=== PATIENT | female | born 1985 | race Caucasian/White ===

== ENCOUNTER → 2016-06-26 | Outpatient (CLI) | payer MEDICAID ==
[~2016-06-26] MED LIST: FLINTSTONES COM1 CTB PO; FLONASE 50 MCG16 GM; IRON325 MG PO; LORATADINE 10MG10 M1 PO; MEDROL 4MG. DOSE4 MG PO; PERCOCET 650 MG1 TAB PO; ZITHROMAX Z PA250 MG PO
--- NOTE | 2016-06-26 22:18 | RADIOLOGY REPORT PS360 ---
LUMBAR SPINE 5 VIEWS ORDERING PHYSICIAN : Etienne Schroeder MD PATIENT AGE: 31 years GENDER: Female INDICATION: LUMBAGO WITH LT SCIATICA TECHNIQUE 5 view lumbar spine series : COMPARISON: None FINDINGS Lumbar vertebral bodies are intact. Disc spaces are well-maintained. No fracture or subluxation. Pedicles transverse processes SI joints appears satisfactory. No pars defect. No listhesis. Bones well mineralized IMPRESSION: Negative lumbar spine series Vertebral bodies are intact . Disc spaces well-maintained
== END ==
LOC: RAD 14:15
DX: M54.42 Lumbago with sciatica, left side (principal)

== ENCOUNTER 2016-08-01 12:52 | Emergency (ER) | payer MEDICAID ==
[~2016-08-01] VITALS: Ht 165.1 cm; Wt 70.3 kg
[~2016-08-01 12:52] MED LIST changes: -FLONASE 50 MCG16 GM; -MEDROL 4MG. DOSE4 MG PO; -ZITHROMAX Z PA250 MG PO
[2016-08-01 13:31] LABS: UTC STREP SCREEN NOT DETECTED (NOTDETECTED)
[2016-08-01] MEDS ORDERED: ZITHROMAX Z PA250 MG PO (13:49)
[2016-08-01] MEDS ORDERED: FLONASE 50 MCG16 GM (13:49)
[2016-08-01] MEDS ORDERED: MEDROL 4MG. DOSE4 MG PO (13:49)
--- NOTE | 2016-08-01 13:49 | Urgent Treatment Center Report ---
History of Present Issue Date/Time Seen by Provider 08/01/16 1330 Visit Reason Pt arrived:Walked Presenting Problem:ABOUT 0230 PATIENT STATES THROAT FEELS LIKE ITS ON FIRE. ALTERNATES BETWEEN HOT AND COLD. SINUS PRESSURE. Location if Accident: Onset of symptoms date/time:/ or onset unknown for:MEDICAL HX UNKNOWN Have you (or family members/close friends) recently traveled outside the [place]? N If Yes, where/when: Have you had exposure to infectious disease within the past month? TB? Other? Specify: Patient states that her throat hurts really bad, states that it is burning and she can taste infection in her mouth. States that she has been having chills and body aches and sinus pressure ALLERGIES Coded Allergies: NO KNOWN ALLERGIES (08/01/16) Home Medications Active Scripts OXYCODONE HCL/ACETAMINOPHEN (Percocet 10-650 MG Tablet) 1 TAB PO Q6HP #30 TAB Prov: 11/25/12 Reported Medications PED MULTIVIT #43/IRON FUMARATE (Flintstones Complete Chew Tab) 1 CTB PO Ferrous Gluconate (Iron) 325 MG PO Loratadine (Loratadine 10MG Tablet) 10 MG PO DAILY History Medical History General Angina: No [place]: No Hypertension? No Hyperlipidemia? No CHF? No COPD? No Asthma? No CVA? No Seizures? No Diabetes? No GB Disease: No MRSA? No TB? No Cancer? No Immunization HX DT/Tetanus 5-10 Years Ago Flu NEVER Pneumonia REFUSES Surgical Hx Previous Surgery?N Social History Smoking Hx Smoker: Never Smoker Tobacco: No Alcohol Alcohol: No Review of Systems All Other Systems Reviewed and Negative ENT ear pain, nose congestion, throat pain, throat swelling. Physical Exam Vital Signs Vital Signs Date Time Temp Pulse Resp B/P Pulse O2 O2 Flow FiO2 Ox Delivery Rate 08/01 1321 98.3 88 20 124/80 96 General Appearance normal appearance Ear, Nose, Throat sinus pain/drainage, nasal congestion, tonsillar exudate, tonsillar swelling, Throat red, swollen, exudate noted with blister like lesions noted Respiratory Status Yes: trachea midline, chest symmetrical, non tender chest. No: respiratory distress. 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 No Results/Orders Laboratory Tests 08/01/16 1325: Influenza Type A Ag NOT DETECTED, Influenza Type B Ag NOT DETECTED, Group A Strep Screen NOT DETECTED Orders Procedure Date/time Status [facility] STREP SCREEN 08/01 1325 Complete UTC FLU A,B 08/01 1325 Complete Departure Departure Time of Disposition 1346 Disposition DC Home or Self Care(routine) Clinical Impression Primary Impression: Upper respiratory infection Qualifiers: URI type: acute tonsillitis Pharyngitis/tonsillitis etiology: unspecified etiology Qualified Code: J03.90 - Acute tonsillitis, unspecified Condition STABLE Referrals Pamela SHUKLA,Thompson Saha (Family) Patient Instructions Sore Throat Additional Instructions Warm Salt water gargles for throat irritation Over the counter Motrin or Tylenol as needed for pain or fever Chloreseptic throat spray Take medication as prescribed Discharge Counseling Counseled pt/family regarding diagnosis, test results, medications/RX, home care, follow up needs Prescriptions Current Visit Scripts Azithromycin (Zithromycin (Z-SHAUN) 250MG Tab) 250 MG PO DAILY #6 TAB TAKE TWO (2) TABLETS ON DAY 1, THEN ONE (1) TABLET DAY #2 THRU #5 Methylprednisolone (Medrol Dose Shaun) 4 MG PO UD #1 SHAUN TAKE DIRECTED ON PACKAGING Fluticasone Propionate (Flonase 50 Mcg Nasal [place]) 2 SPRAY NA DAILY #1 BOT at 3385
[2016-08-01 13:52] VITALS: BP 124/80
== END 2016-08-01 13:53 | disposition home or self-care (01) ==
LOC: UTC 12:52
PROVIDERS: Nurse Practitioner
DX: J03.90 Acute tonsillitis, unspecified (principal)

== ENCOUNTER → 2016-12-18 | Outpatient (CLI) | payer MEDICAID ==
[~2016-12-18] MED LIST changes: +FLONASE 50 MCG16 GM; +MEDROL 4MG. DOSE4 MG PO; +ZITHROMAX Z PA250 MG PO
[2016-12-18 10:27] LABS: HEMOGLOBIN 13.5 g/dL (12.2-16.2); LYMPH # 1.6 K/mm3 (0.7-4.5); LYMPH % 28.2 % (10-50.0)
[2016-12-18 11:55] LABS: ABO BLOOD TYPE O; RH BLOOD TYPE POSITIVE
[2016-12-18 21:17] LABS: AMPHETAMINES/METAMPHETAMINES NEGATIVE ng/mL (<1000)
[2016-12-19 08:40] LABS: HBsAg Screen Negative (Negative); Rapid Plasma Reagin, Quant Non Reactive (NonRea<1:1); Rubella Antibodies, IgG 6.65 index (Immune >0.99)
[2016-12-19 10:37] LABS: HIV Screen 4th Generation wRfx Non Reactive (Non Reactive)
== END ==
LOC: LAB 09:47
PROVIDERS: Obstetrics & Gynecology
DX: Z36 Encounter for antenatal screening of mother (principal); Z34.80 Encounter for supervision of other normal pregnancy, unspecified trimester; Z04.8 Encounter for examination and observation for other specified reasons
CPT/HCPCS: G0432

== ENCOUNTER 2017-03-31 17:01 | Emergency (ER) | payer MEDICAID ==
[~2017-03-31] VITALS: Ht 165.1 cm; Wt 75.3 kg
--- OUTSIDE RECORDS SUMMARY | 2017-03-31 17:07 | External Medical Summary Rpt | CCD ---
Author Author , TRICIA Organization [employer] Address Unknown Phone [email or web address] Purpose Continuity of Care Document - 12-18-2016 through 2016 Results Labs Lab Lab Date Result Refere Interp Status Commen Order Detail nces retati t Range on Blood group antibody screen [Presence] in Serum or Plasma (12-18-2016 09:47) Blood NEGATIV NEGATIV complet group 017 E E ed antibod 09:47 y screen [Presen ce] in Serum or Plasma Rh [Type] in Blood (12-18-2016 09:47) Rh POSITIV complet [Type] 017 E ed in 09:47 Blood ABO group [Type] in Blood (12-18-2016 09:47) ABO O complet group 017 ed [Type] 09:47 in Blood Drugs identified in Urine by Screen method (12-18-2016) Ampheta NEGATIV <1000 complet mine 017 E ed [Presen ce] in Urine by Screen method NEGATIV <50 complet oxy 017 E ed delta-9 tetrahy drocann abinol [Presen ce] in Unspeci fied specime n
--- OUTSIDE RECORDS SUMMARY | 2017-03-31 17:07 | External Medical Summary Rpt | CCD ---
Author Author [employer] Organization [employer] Address Unknown Phone Unavailable Purpose Continuity of Care Document - through 2016
--- OUTSIDE RECORDS SUMMARY | 2017-03-31 17:07 | External Medical Summary Rpt | CCD ---
Author Author , TRICIA Organization [employer] Address Unknown Phone [email or web address] Purpose Continuity of Care Document - 12-18-2016 [...]
--- OUTSIDE RECORDS SUMMARY | 2017-03-31 17:08 | External Medical Summary Rpt | CCD ---
Demographics Preferred Language Welsh Marital Status Unknown Jew Affiliation Unknown Race Unknown Ethnic Group Unknown Author Author , JANIE LIMA Address Unknown Phone Immunization Unable to retrieve immunization data due to connection failure with Immunization Registry. Please try again later.
--- OUTSIDE RECORDS SUMMARY | 2017-03-31 17:08 | External Medical Summary Rpt | CCD ---
Demographics Preferred Language Hungarian Marital Status Unknown Worship Affiliation Unknown Race Unknown Ethnic Group Unknown Author Author , JANIE LIMA Address Unknown Phone Immunization Unable to retrieve immunization data due to connection failure with Immunization Registry. Please try again later.
--- OUTSIDE RECORDS SUMMARY | 2017-03-31 17:09 | External Medical Summary Rpt ---
Author Author FLETCHERFRANCISCO Tomlin, [employer]IE [employer] Organization [employer] Address Unknown Phone Unavailable Results AFP Tetra Observa Value Referen Units Interpr Notes Date tion ce etation Range Results REPORT No No No No Sep 11 informa informa informa informa 2017 tion in tion in tion in tion in 9:02 AM source source source source data data data data Alpha-1-F No No No No Sep 11 etoprotei informati informati informati informati 2016 9:02 n on in on in on in on in AM [Mass/vol source source source source ume] in data data data data Serum or Plasma Alpha-1-F No No No No Sep 11 etoprotei informati informati informati informati 2016 9:02 n on in on in on in on in AM [Multiple source source source source of the data data data data median] adjusted in Serum or Plasma Choriogon No No No No Sep 11 adotropin informati informati informati informati 2016 9:02 on in on in on in on in AM [Units/vo source source source source lume] in data data data data Serum or Plasma Choriogon No No No No Sep 11 adotropin informati informati informati informati 2017 9:02 on in on in on in on in AM [Multiple source source source source of the data data data data median] adjusted in Serum or Plasma Estriol.u No No No No Sep 11 nconjugat informati informati informati informati 2016 9:02 ed on in on in on in on in AM [Mass/vol source source source source ume] in data data data data Serum or Plasma Estriol.u No No No No Sep 11 nconjugat informati informati informati informati 2016 9:02 ed on in on in on in on in AM [Multiple source source source source of the data data data data median] adjusted in Serum or Plasma Inhibin A No No No No Sep 11 informati informati informati informati 2017 9:02 [Mass/vol on in on in on in on in AM ume] in source source source source Serum data data data data Inhibin A No No No No Sep 11 informati informati informati informati 2017 9:02 [Multiple on in on in on in on in AM of the source source source source median] data data data data adjusted in Serum Neural No No No No Sep 11 tube informati informati informati informati 2017 9:02 defect on in on in on in on in AM risk in source source source source Fetus data data data data Trisomy No No No No Sep 11 21 risk informati informati informati informati 2017 9:02 in Fetus on in on in on in on in AM source source source source data data data data Second SCREEN No No No No Sep 11 trimest NEGATIV informa informa informa informa 2017 er quad E tion in tion in tion in tion in 9:02 AM source source source source materna data data data data l screen [interp retatio n] in Serum Narrati ve Trisomy No No No No Sep 11 21 risk informati informati informati informati 2017 9:02 based on on in on in on in on in AM maternal source source source source age in data data data data Fetus Trisomy No No No No Sep 11 18 risk informati informati informati informati 2017 9:02 in Fetus on in on in on in on in AM source source source source data data data data Trisomy No No No SCREEN Sep 11 18 risk informati informati informati NEGATIVET 2017 9:02 based on on in on in on in HIS AM maternal source source source RESULT IS age in data data data SCREEN Fetus NEGATIVE FOR OSB, DOWN SYNDROMEA ND TRISOMY 18.[facility] SITE:[facility] OR [id number] [place], [place] [address]QBT: GRIS REYES H: [phone] [id number]: Gestation No No No No Sep 11 al age informati informati informati informati 2017 9:02 on in on in on in on in AM source source source source data data data data Gestati ERNESTO No No No No Sep 11 onal 07/16/17 informa informa informa informa 2017 age tion in tion in tion in tion in 9:02 AM method source source source source data data data data Age at No No No No Sep 11 delivery informati informati informati informati 2017 9:02 on in on in on in on in AM source source source source data data data data Mother' CAUCASI No No No No Sep 11 s race AN informa informa informa informa 2017 tion in tion in tion in tion in 9:02 AM source source source source data data data data Body No No No No Sep 11 weight informati informati informati informati 2016 9:02 on in on in on in on in AM source source source source data data data data Insulin NOT No No No No Sep 11 PROVIDE informa informa informa informa 2017 depende D tion in tion in tion in tion in 9:02 AM nt source source source source diabete data data data data s mellitu s [Presen ce] Multipl NO No No No No Feb 05 e informa informa informa informa 2017 preganc tion in tion in ti in in 9:02 AM y source source source source data data data data Blood group antibody screen [Presence] in Serum or Plasma Observa Value Referen Units Interpr Notes Date ti ce etation Range Blood NEGATIV NEGATIV No No No Dec 18 group E E informa informa informa 2016 antibod tion in tion in in 9:47 AM y source source source screen data data data [Presen ce] in Serum or Plasma Rh [Type] in Blood Observa Value Referen Units Interpr Notes Date ti ce etation Range Rh POSITIV No No No No Dec 18 [Type] E informa informa informa informa 2016 in tion in tion in tion in ti in 9:47 AM Blood source source source source data data data data ABO group [Type] in Blood Observa Value Referen Units Interpr Notes Date tion ce etation Range ABO O No No No No Dec 18 group informa informa informa informa 2016 [Type] tion in tion in tion in tion in 9:47 AM in source source source source Blood data data data data Thyrotropin [Units/volume] in Serum or Plasma Observa Value Referen Units Interpr Notes Date tion ce etation Range Thyrotrop 0.358 - uIU/ml Normal No Dec 18 in 3.740 informati 2017 9:47 [Units/vo on in AM lume] in source Serum or data Plasma CBC W Auto Differential panel in Blood Observa Value Referen Units Interpr Notes Date tion ce etation Range Granulocy 1.8 - 7.8 K/mm3 Normal No Dec 18 haresh informati 2016 9:47 [#/volume on in AM ] in source Blood by data Automated count Granulocy 37.0 - % Normal No Dec 18 haresh/100 80.0 informati 2016 9:47 leukocyte on in AM s in source Blood by data Automated count Hematocri 37.0 - % Normal No Dec 18 t [Volume 47.0 informati 2017 9:47 on in AM Fraction] source of Blood data Hemoglobi 12.2 - g/dL Normal No Dec 18 n 16.2 informati 2017 9:47 [Mass/vol on in AM ume] in source Blood data Lymphocyt 0.7 - 4.5 K/mm3 Normal No Dec 18 es informati 2016 9:47 [#/volume on in AM ] in source Unspecifi data ed specimen by Automated count Lymphocyt 10 - 50.0 % Normal No Dec 18 es informati 2016 9:47 [#/volume on in AM ] in source Unspecifi data ed specimen by Automated count Erythrocy 27 - 31.2 pg Normal No Dec 18 te mean informati 2017 9:47 corpuscul on in AM ar source hemoglobi data n [Entitic mass] Erythrocy 31.8 - g/dl Normal No Dec 18 te mean 35.4 informati 2016 9:47 corpuscul on in AM ar source hemoglobi data n concentra tion [Mass/vol ume] by Automated count Erythrocy 82.2 - fL Normal No Dec 18 te mean 97.8 informati 2016 9:47 corpuscul on in AM ar volume source [Entitic data volume] by Automated count Monocytes 0.1 - 1.0 K/mm3 Normal No Dec 18 informati 2017 9:47 [#/volume on in AM ] in source Blood by data Automated count Monocytes 1.7 - 9.3 % Normal No Dec 18 / informati 2017 9:47 leukocyte on in AM s in source Blood by data Automated count Platelets 142 - 424 K/mm3 Normal No Dec 18 informati 2017 9:47 [#/volume on in AM ] in source Blood data Erythrocy 4.2 - 5.4 M/mm3 Normal No Dec 18 haresh informati 2016 9:47 [#/volume on in AM ] in source Amniotic data fluid Erythrocy 11.5 - % Normal No Dec 18 te 17.5 informati 2016 9:47 distribut on in AM ion width source [Entitic data volume] by Automated count Leukocyte 4.8 - K/mm3 Normal No Dec 18 s 10.8 informati 2016 9:47 [#/volume on in AM ] in source Blood data Drugs identified in Urine by Screen method Observa Value Referen Units Interpr Notes Date tion ce etation Range Positive urine drug screen samples are stored for 7 days. Contact the Lab if confirmation of positives is needed. Ampheta NEGATIV <1000 ng/mL No No Dec 18 mine E informa informa 2017 [Presen tion in tion in ce] in source source Urine data data by Screen method Barbitura <200 ng/mL No No Dec 18 haresh informati informati 2017 [Mass/vol on in on in ume] in source source Urine by data data Screen method Benzodiaz 200 ng/mL ng/mL No No Dec 18 epines informati informati 2017 [Mass/vol on in on in ume] in source source Serum or data data Plasma by Screen method Cocaine <300 ng/g No No Dec 18 [Mass/vol informati informati 2016 ume] in on in on in Unspecifi source source ed data data specimen Methadone <300 ng/mL No No Dec 18 informati informati 2017 [Mass/vol on in on in ume] in source source Unspecifi data data ed specimen Opiates <300 ng/mL No No Dec 18 [Mass/vol informati informati 2016 ume] in on in on in Unspecifi source source ed data data specimen Phencycli <25 ng/mL No No Dec 18 dine informati informati 2017 [Mass/vol on in on in ume] in source source Unspecifi data data ed specimen 11-Hydr NEGATIV <50 ng/mL No No Dec 18 oxy E informa informa 2017 delta-9 tion in tion in source source tetrahy data data drocann abinol [Presen ce] in Unspeci fied specime n
--- OUTSIDE RECORDS SUMMARY | 2017-03-31 17:09 | External Medical Summary Rpt ---
[...] NEGATIVE FOR OSB, DOWN SYNDROMEA ND TRISOMY 18.[facility] SITE:[facility] OR [id number] [place], [place] [address]STT: GRIS REYES H: [phone] [id number]: Gestation No [...]
[2017-03-31] MEDS ORDERED: BROMFED DM COU118 ML PO (17:37)
[2017-03-31] MEDS ORDERED: ZITHROMAX Z PA250 MG PO (17:37)
[2017-03-31] MEDS ORDERED: MEDROL 4MG. DOSE4 MG PO (17:37)
[2017-03-31] MEDS ORDERED: FLONASE 50 MCG16 GM (17:37)
--- NOTE | 2017-03-31 17:38 | Urgent Treatment Center Report ---
History of Present Issue Date/Time Seen by Provider 03/31/17 1722 Visit Reason Pt arrived:Walked Presenting Problem:PT C/O OF HEAD CONGESTION, BILATERAL EAR PAIN, COUGH, AND SORE THROAT Location if Accident: Onset of symptoms date/time:/ or onset unknown for:MEDICAL HX UNKNOWN Have you (or family members/close friends) recently traveled outside the [place]? N If Yes, where/when: Have you had exposure to infectious disease within the past month? TB? Other? Specify: Patient state that she has been having cough, sinus pain and pressure along with head congestion and sore throat State that it has continued to get worse over the last few days State that she began to get worried that she may have strep throat so she came in to get checked ALLERGIES Coded Allergies: NO KNOWN ALLERGIES (08/01/16) Home Medications Active Scripts Azithromycin (Zithromycin (Z-HYACINTH) 250MG Tab) 250 MG PO DAILY #6 TAB Prov: 08/01/16 Methylprednisolone (Medrol Dose Hyacinth) 4 MG PO UD #1 HYACINTH Prov: 08/01/16 Fluticasone Propionate (Flonase 50 Mcg Nasal [place]) 2 SPRAY NA DAILY #1 BOT Prov: 08/01/16 OXYCODONE HCL/ACETAMINOPHEN (Percocet 10-650 MG Tablet) 1 TAB PO Q6HP #30 TAB Prov: 11/25/12 Reported Medications PED MULTIVIT #43/IRON FUMARATE (Flintstones Complete Chew Tab) 1 CTB PO Ferrous Gluconate (Iron) 325 MG PO Loratadine (Loratadine 10MG Tablet) 10 MG PO DAILY History Medical History General Angina: No [place]: No Hypertension? No Hyperlipidemia? No CHF? No PE? No COPD? No Asthma? No Anemia? No GERD? No GI Bleed? No Hernia? No Hypothyroidism? No CVA? No Seizures? No Diabetes? No Renal Insuffiency? No UTI? No Stones? No BPH? No GB Disease: No Nephritic Syndrome? No Asplenia? No Hepatitis? No Sickle Cell Disease? No Arthritis? No Migraines? No Cataracts? No Glaucoma? No MRSA? No HIV? No TB? No Anxiety? No Depression? No Cancer? No More? No Immunization HX DT/Tetanus 5-10 Years Ago Flu NEVER Pneumonia REFUSES Surgical Hx Previous Surgery?N Social History Smoking Hx Smoker: Never Smoker Tobacco: No Alcohol Alcohol: No Review of Systems All Other Systems Reviewed and Negative Constitutional chills, fever ENT ear pain, nose discharge, nose congestion, throat pain. Respiratory cough, denies shortness of breath, denies wheezing Physical Exam Vital Signs Vital Signs Date Time Temp Pulse Resp B/P Pulse O2 O2 Flow FiO2 Ox Delivery Rate 03/31 1710 98.6 98 20 136/77 99 General Appearance normal appearance, WD/WN, no apparent distress Ear, Nose, Throat sinus pain/drainage, nasal congestion, Throat mildly red, irritated drainage noted, tenderness noted maxillary sinsues Respiratory Status Yes: trachea midline, chest symmetrical, non tender chest. No: respiratory distress. Lung Sounds bilateral: normal breath sounds, lungs clear. Cardiovascular normal exam, regular rate/rhythm, no peripheral edema Gastrointestinal normal bowel sounds, normal exam, non tender Neurologic alert, normal exam, oriented x 3 Medical Decision Making LABS/Meds/Orders Pt receiving controlled substance in ED? No Results/Orders Laboratory Tests 03/31/17 1712: Group A Strep Screen NOT DETECTED Orders Procedure Date/time Status [facility] STREP SCREEN 03/31 171 Complete Departure Departure Time of Disposition 1733 Disposition DC Home or Self Care(routine) Clinical Impression Primary Impression: Upper respiratory infection Qualifiers: URI type: unspecified URI Qualified Code: J06.9 - Acute upper respiratory infection, unspecified Condition STABLE Referrals Thompson Santiago MD (Family): 3 Days-Call Office if no improvement in symptoms Patient Instructions Cough, DI for Cough -- Adult, DI for Sinusitis, Sore Throat Additional Instructions * Monitor Temp. Tylenol and/or Ibuprofen as needed. ER if fever is no less than 101 despite alternating Tylenol and Ibuprofen * Encourage fluids, water, Gatorade, powerade, pedialyte if infant/toddler/or child * Warm salt water gargles for throat irritation *Warm fluids *Sore throat lozenges *Sleep elevated *humidifier or vaporizer Lots of rest Increase fluids, water, Gatorade, powerade *Flonase 2 sprays each nostril daily but may take 2-3 days to notice improvement with it *Bromfed may cause drowsiness. Know how it effect you or your child. Before driving, caring for small children or sending your child to school *Your throat swab was sent to lab for culture. Those results area typically sent to your primary care physician. Be sure to follow up in 2-3 days if no improvement so they can review those results and treat if necessary If you dont have primary care I recommend you get one, but in the mean time you will have to return to a walk in clinic Follow up IMMEDIATELY for new or worsening of symptoms OR no noticeable improvement over the next 48-72 hours. 911 immediately for any life threatening symptoms such as chest pain or difficulty breathing Discharge Counseling Counseled pt/family regarding diagnosis, test results, medications/RX, home care, follow up needs Prescriptions Current Visit Scripts Azithromycin (Zithromycin (Z-HYACINTH) 250MG Tab) 250 MG PO DAILY #6 TAB TAKE TWO (2) TABLETS ON DAY 1, THEN ONE (1) TABLET DAY #2 THRU #5 D-METHORPHAN HB/P-EPD HCL/BPM (Bromfed Dm Cough Syrup) 10 ML PO Q4HP PRN cough #120 SYR Fluticasone Propionate (Flonase 50 Mcg Nasal [place]) 2 SPRAY NA DAILY #1 BOT Methylprednisolone (Medrol Dose Hyacinth) 4 MG PO UD #1 HYACINTH TAKE DIRECTED ON PACKAGING at 1736
[2017-03-31 17:43] VITALS: BP 136/77
== END 2017-03-31 17:44 | disposition home or self-care (01) ==
LOC: UTC 17:01
DX: J06.9 Acute upper respiratory infection, unspecified (principal)

== ENCOUNTER → 2017-04-02 | Outpatient (CLI) | payer MEDICAID ==
[~2017-04-02] MED LIST changes: +BROMFED DM COU118 ML PO
[2017-04-02 09:27] LABS: HEMOGLOBIN 11.5 g/dL (12.2-16.2); LYMPH # 1.6 K/mm3 (0.7-4.5); LYMPH % 15.6 % (10-50.0)
== END ==
LOC: LAB 09:01
PROVIDERS: Obstetrics & Gynecology
DX: Z13.1 Encounter for screening for diabetes mellitus (principal); Z34.80 Encounter for supervision of other normal pregnancy, unspecified trimester

== ENCOUNTER → 2017-04-09 | Outpatient (CLI) | payer MEDICAID ==
[2017-04-09 08:59] LABS: FASTING URINE GLUCOSE NEG
[2017-04-09 10:26] LABS: 1 HR URINE GLUCOSE NEGATIVE mg/ml
== END ==
LOC: LAB 08:18
PROVIDERS: Obstetrics & Gynecology
DX: Z13.1 Encounter for screening for diabetes mellitus (principal); Z34.80 Encounter for supervision of other normal pregnancy, unspecified trimester